=== PATIENT | male | born 1950 | race Caucasian/White ===

== ENCOUNTER 2022-04-26 13:06 | Inpatient (IN) | payer MEDICARE, BC ==
[~2022-04-26] VITALS: Ht 170.2 cm; Wt 116.0 kg
[2022-04-26] VITALS (13 sets, daily range): BP systolic 102–183; BP diastolic 58–95
[2022-04-26] MEDS ORDERED: DOXAZOSIN4 M1 PO (13:52)
[2022-04-26 13:56] LABS: BASO% 0.3 % (0-3); EOS% 0.9 % (0-8); HEMATOCRIT 48.1 % (39.0-50.0); HEMOGLOBIN 16.1 g/dl (14.0-18.0); IMMATURE GRANULOCYTES 0.1 % (0.0-5.0); LYMPH% 12.3 % (15-41); MEAN CELL VOLUME 90.1 fL CALC (80.0-100.0); MEAN CORPUSCULAR HGB 30.1 pG CALC (26.0-32.0); MEAN CORPUSCULAR HGB CONC 33.5 g/dL CAL (32.0-36.0); MONO% 11.9 % (2-13); NEUT# 7.17 thou/uL (1.82-7.42); NEUT% 74.5 % (42-76); RED BLOOD COUNT 5.34 mill/uL (4.70-6.10); RED CELL DISTRI WIDTH 12.8 % (11.5-15.5)
[2022-04-26] MEDS ORDERED: CLOPIDOGREL75 MG PO (14:00)
[2022-04-26] MEDS ORDERED: ZESTRIL40 MG PO (14:00)
[2022-04-26] MEDS ORDERED: CHLORTHALIDONE25 MG PO (14:01)
[2022-04-26] MEDS ORDERED: ATORVASTATIN CA40 MG PO (14:01)
[2022-04-26] MEDS ORDERED: COLCHICINE0.6 M2 (14:02)
[2022-04-26] MEDS ORDERED: ALLOPURINOL100 MG PO (14:02)
[2022-04-26] MEDS ORDERED: LIPITOR20 M1 PO (14:03)
[2022-04-26 14:08] LABS: INTERNATIONAL NORMALIZED RATIO 1.1 RATIO (0.7-1.3); PROTHROMBIN TIME 10.5 SECONDS (9.0-12.5)
[2022-04-26 14:09] LABS: ALBUMIN 4.6 g/dL (3.2-5.0); ALKALINE PHOSPHATASE 42 u/l (38-126); AMYLASE 67 u/l (30-110); ANION GAP 13 (6-22 (CALC)); BILIRUBIN, TOTAL 1.2 mg/dL (0.2-1.3); CARBON DIOXIDE 24 mmol/l (22-30); CHLORIDE 106 mmol/l (95-108); LIPASE 89 u/l (23-300); POTASSIUM 3.7 mmol/l (3.5-5.1); SGOT/AST 35 u/l (19-48); SODIUM 139 mmol/l (137-146); TOTAL PROTEIN 7.7 g/dL (6.3-8.2)
[2022-04-26 14:14] LABS: BUN 24 mg/dL (8-23); BUN/CREATININE RATIO 22 (12-20 (CALC)); CREATININE 1.1 mg/dL (0.7-1.3); GFR FOR AFR.AMER. > 60 ML/MIN (>=60 (CALC)); GFR OTHER RACES > 60 ML/MIN (>=60 (CALC))
[2022-04-26 16:20] LABS: URINE BILIRUBIN - DIPSTICK NEGATIVE (NEGATIVE); URINE BLOOD DIPSTICK NEGATIVE (NEGATIVE); URINE COLOR YELLOW; URINE GLUCOSE - DIPSTICK NEGATIVE (NEGATIVE); URINE KETONE NEGATIVE (NEGATIVE); URINE LEUK ESTERASE NEGATIVE (NEGATIVE); URINE NITRITE - DIPSTICK NEGATIVE (Negative); URINE PH 6.5 (4.5-8.0); URINE PROTEIN - DIPSTICK NEGATIVE (NEG-TRACE); URINE UROBILINOGEN - DIPSTICK 0.2 E.U./dL (0.2)
[2022-04-27] VITALS (7 sets, daily range): BP systolic 97–131; BP diastolic 58–77
[2022-04-27 06:05] LABS: BASO% 0.2 % (0-3); EOS% 0.6 % (0-8); HEMATOCRIT 42.7 % (39.0-50.0); IMMATURE GRANULOCYTES 0.2 % (0.0-5.0); LYMPH% 12.3 % (15-41); MEAN CELL VOLUME 91.4 fL CALC (80.0-100.0); MEAN CORPUSCULAR HGB 30.2 pG CALC (26.0-32.0); NEUT# 6.67 thou/uL (1.82-7.42); NEUT% 71.7 % (42-76); RED BLOOD COUNT 4.67 mill/uL (4.70-6.10)
[2022-04-27 06:13] LABS: HEMOGLOBIN 14.1 g/dl (14.0-18.0)
[2022-04-27 06:21] LABS: ALKALINE PHOSPHATASE 28 u/l (38-126); ANION GAP 15 (6-22 (CALC)); BUN 27 mg/dL (8-23); BUN/CREATININE RATIO 21 (12-20 (CALC)); CARBON DIOXIDE 20 mmol/l (22-30); CHLORIDE 103 mmol/l (95-108); CREATININE 1.3 mg/dL (0.7-1.3); GFR FOR AFR.AMER. > 60 ML/MIN (>=60 (CALC)); GFR OTHER RACES 54 ML/MIN (>=60 (CALC)); SGOT/AST 25 u/l (19-48); SODIUM 134 mmol/l (137-146)
[2022-04-27 06:28] LABS: ALBUMIN 3.6 g/dL (3.2-5.0); BILIRUBIN, TOTAL 1.8 mg/dL (0.2-1.3); TOTAL PROTEIN 6.1 g/dL (6.3-8.2)
[2022-04-28 04:47] VITALS: BP 135/69
[2022-04-28 05:34] LABS: HEMATOCRIT 44.3 % (39.0-50.0); HEMOGLOBIN 14.9 g/dl (14.0-18.0); MEAN CELL VOLUME 90.6 fL CALC (80.0-100.0); MEAN CORPUSCULAR HGB 30.5 pG CALC (26.0-32.0); MEAN CORPUSCULAR HGB CONC 33.6 g/dL CAL (32.0-36.0); RED BLOOD COUNT 4.89 mill/uL (4.70-6.10); RED CELL DISTRI WIDTH 12.6 % (11.5-15.5)
[2022-04-28 05:50] LABS: ALKALINE PHOSPHATASE 42 u/l (38-126); ANION GAP 12 (6-22 (CALC)); BUN 29 mg/dL (8-23); BUN/CREATININE RATIO 23 (12-20 (CALC)); CARBON DIOXIDE 21 mmol/l (22-30); CHLORIDE 101 mmol/l (95-108); CREATININE 1.3 mg/dL (0.7-1.3); GFR FOR AFR.AMER. > 60 ML/MIN (>=60 (CALC)); GFR OTHER RACES 54 ML/MIN (>=60 (CALC)); MAGNESIUM 1.6 mg/dL (1.6-2.3); POTASSIUM 4.1 mmol/l (3.5-5.1); SGOT/AST 27 u/l (19-48); SODIUM 130 mmol/l (137-146); TOTAL PROTEIN 7.2 g/dL (6.3-8.2)
[2022-04-28 05:56] LABS: BILIRUBIN, TOTAL 0.9 mg/dL (0.2-1.3)
[2022-04-28 07:02] VITALS: BP 128/62
[2022-04-28] MEDS ORDERED: ELIQUIS5 MG PO (10:55)
[2022-04-28] MEDS ORDERED: LOPRESSOR 550 MG/TAB PO (10:56)
[2022-04-28] MEDS ORDERED: MEDDOSEPAK PO (10:57)
[2022-04-28] MEDS ORDERED: ASPIRIN81 MG PO (10:57)
[2022-04-28] MEDS ORDERED: VIBRAMYCIN100 M2 PO (10:58)
[2022-04-28] MEDS ORDERED: DIGOXIN250 MCG PO (10:59)
== END 2022-04-28 11:43 | disposition home or self-care (01) | DRG 309 ==
LOC: ED 13:06 → ED-I 14:16 → ED 14:16 → ED-I 16:00 → ED 16:50 → MS2 16:51
PROVIDERS: Emergency Medicine; ADMIT Internal Medicine; ATTEND Internal Medicine
DX: I48.0 Paroxysmal atrial fibrillation (principal); I50.22 Chronic systolic (congestive) heart failure; R07.89 Other chest pain; I11.0 Hypertensive heart disease with heart failure; I73.9 Peripheral vascular disease, unspecified; E78.5 Hyperlipidemia, unspecified; G47.33 Obstructive sleep apnea (adult) (pediatric); M54.9 Dorsalgia, unspecified; G89.29 Other chronic pain; Z95.820 Peripheral vascular angioplasty status with implants and grafts; Z96.82 Presence of neurostimulator; Z86.711 Personal history of pulmonary embolism; Z86.718 Personal history of other venous thrombosis and embolism; Z87.891 Personal history of nicotine dependence; Z79.02 Long term (current) use of antithrombotics/antiplatelets; Z82.49 Family history of ischemic heart disease and other diseases of the circulatory system; Z20.822 Contact with and (suspected) exposure to COVID-19
CPT/HCPCS: G0378; J1650; Q9967